=== PATIENT | male | born 1955 | race Caucasian/White ===

== ENCOUNTER 2018-09-30 04:06 | Inpatient (IN) ==
--- NOTE | 2018-09-24 15:35 | EKG Report ---
Test Performed on : 09/24/2018 3:26:24 PM Test Reason : PAT Blood Pressure : / mmHG Vent. Rate : 085 BPM Atrial Rate : 085 BPM P-R Int : 118 ms QRS Dur : 088 ms QT Int : 366 ms P-R-T Axes : 021 -01 020 degrees QTc Int : 435 ms Normal sinus rhythm. Minimal voltage criteria for LVH, may be normal variant Borderline ECG When compared with ECG of 05-APR-2018 06:19, QT has shortened Unconfirmed Result
[2018-09-24 15:44] LABS: URINE SOURCE VOIDED
[2018-09-24 15:53] LABS: BASO# 0.01 X1000 (0.0-0.2); BASO% 0.1 % (0.0-0.8); EOS# 0.03 X1000 (0.0-0.7); EOS% 0.4 % (0.0-10.0); HEMATOCRIT 37.6 % (42.0-52.0); HEMOGLOBIN 12.2 g/dL (14.0-18.0); LYMPH# 1.85 X1000 (1.2-3.4); LYMPH% 24.9 % (20.5-51.1); MCH 29.5 PG (27-31); MCHC 32.4 g/dL (33-37); MONO# 0.63 X1000 (0.11-0.59); MONO% 8.5 % (1.7-9.3); MPV 9.1 FL (7.4-10.4); NEUT# 4.92 X1000 (1.4-6.5); NEUT% 66.1 % (42.2-75.2); PLT 296 X1000 (130-400); RBC 4.13 XMIL (4.7-6.1); RDW 14.4 % (11.5-14.5); WBC 7.44 X1000 (4.8-10.8)
[2018-09-24 15:54] LABS: BILIRUBIN URINE NEGATIVE (NEGATIVE); BLOOD URINE NEGATIVE (NEGATIVE); COLOR YELLOW; GLUCOSE URINE NEGATIVE (NEGATIVE); KETONE URINE NEGATIVE (NEGATIVE); LEUKOCYTES URINE NEGATIVE (NEGATIVE); NITRITE URINE NEGATIVE (NEGATIVE); PROTEIN URINE NEGATIVE (NEGATIVE); TURBIDITY URINE CLEAR (CLEAR); UROBILINOGEN URINE NORMAL (NORMAL)
[2018-09-24 15:55] LABS: UR EPITHELIAL CELLS <10 /HPF (<10); URINE BACTERIA NEGATIVE /HPF; URINE RBC <10 /HPF (<10); URINE WBC <10 /HPF (<10)
[2018-09-24 16:08] LABS: AGAP 13; ALB/GLOB RATIO 1.2; ALBUMIN 4.3 g/dL (3.5-5.0); ALKALINE PHOSPHATASE 74 U/L (32-122); BUN 7 mg/dL (8-22); CALCIUM 9.3 mg/dL (8.8-10.2); CHLORIDE 99 mmol/L (98-107); COSMO 269; CREATININE 0.7 mg/dL (0.7-1.2); ESTIMATED GFR > 60; GLUCOSE 89 mg/dL (70-104); GOT 33 U/L (10-34); GPT 20 U/L (10-44); POTASSIUM 4.1 mmol/L (3.5-5.1); SODIUM 136 mmol/L (136-145); TCO2 24 mmol/L (25-35); TOTAL BILIRUBIN 0.43 mg/dL (0.20-1.00); TOTAL PROTEIN 7.8 g/dL (6.3-8.3)
--- NOTE | 2018-09-24 16:21 | Diag Imaging Result Doc PS360 ---
CHEST-2 VIEWS - 09/24/2018 INDICATION: PAT COMPARISON: 11/01/2015 FINDINGS: There is some stable apical pleural scarring bilaterally. No focal infiltrates, pneumothorax, or pleural effusion. Heart size and pulmonary vascular are normal. Stable surgical clips at the diaphragmatic hiatus. IMPRESSION: No acute disease or change from prior. Electronically signed by Chuck Jones 09/24/2018 4:18 PM
[2018-09-30] MEDS ORDERED: ENTEREG ONE (05:39)
[2018-09-30] MEDS ORDERED: MEFOXIN 1 GM/D5W 1 GM/50 ML IVPB ONE (05:39)
[2018-09-30] MEDS ORDERED: LR 1,000 ML ONE (05:40)
[2018-09-30] MEDS ORDERED: FLAGYL 1000 MG/NS 1,000 MG/200 ML IVPB IV ONE (06:00)
[2018-09-30] MEDS ORDERED: VERSED ONE (06:03)
[2018-09-30] MEDS ORDERED: DIPRIVAN 1% ONE (06:04)
[2018-09-30] MEDS ORDERED: FENTANYL ONE (06:04)
[2018-09-30] MEDS ORDERED: MARCAINE 0.5% PF ONE (06:39)
[2018-09-30] MEDS ORDERED: EXPAREL 1.3% ONE (06:39)
[2018-09-30] MEDS ORDERED: DILAUDID ONE (07:51)
[2018-09-30] MEDS ORDERED: NEO-SYNEPHRINE ONE (08:18)
[2018-09-30] MEDS ORDERED: ZOFRAN ONE (08:18)
[2018-09-30] MEDS ORDERED: DECADRON ONE (08:18)
[2018-09-30] MEDS ORDERED: ROBINUL ONE (08:18)
[2018-09-30] MEDS ORDERED: NEOSTIGMINE ONE (08:18)
[2018-09-30] MEDS ORDERED: QUELICIN (DOSE) ONE (08:18)
[2018-09-30] MEDS ORDERED: XYLOCAINE-MPF 2% ONE (08:18)
[2018-09-30 09:24] LABS: URINE SOURCE CATH
[2018-09-30] MEDS: DILAUDID ONE ×4 (09:24→09:51)
[2018-09-30 09:27] LABS: BILIRUBIN URINE NEGATIVE (NEGATIVE); BLOOD URINE NEGATIVE (NEGATIVE); COLOR YELLOW; GLUCOSE URINE NEGATIVE (NEGATIVE); KETONE URINE TRACE mg/dL (NEGATIVE); LEUKOCYTES URINE NEGATIVE (NEGATIVE); NITRITE URINE NEGATIVE (NEGATIVE); PROTEIN URINE NEGATIVE (NEGATIVE); SP GRAVITY URINE 1.001; TURBIDITY URINE CLEAR (CLEAR); UROBILINOGEN URINE NORMAL (NORMAL)
[2018-09-30 09:29] LABS: UR EPITHELIAL CELLS <10 /HPF (<10); URINE BACTERIA NEGATIVE /HPF; URINE RBC <10 /HPF (<10); URINE WBC <10 /HPF (<10)
[2018-09-30] MEDS ORDERED: DEMEROL ONE (09:38)
[2018-09-30] MEDS ORDERED: D5 1/2 NS 1,000 ML ONE (09:39)
[2018-09-30] MEDS ORDERED: APRESOLINE ONE (09:56)
[2018-09-30] MEDS ORDERED: NARCAN 0.4 MG in LR 1,000 ML IV PRN (10:00)
[2018-09-30] MEDS ORDERED: BENADRYL IV PRN (10:00)
[2018-09-30] MEDS ORDERED: DILAUDID-HP 30 MG in NS 27 ML IV PRN (10:00)
[2018-09-30] MEDS ORDERED: NARCAN IV PRN (10:00)
[2018-09-30] MEDS ORDERED: LR 1,000 ML IV SCH (10:00)
[2018-09-30] MEDS ORDERED: LABETALOL IV ONE (10:00)
[2018-09-30] MEDS ORDERED: ATARAX PO PRN (10:00)
--- NOTE | 2018-09-30 10:15 | OPERATIVE NOTE ---
PROCEDURE DATE: 09/30/2018 PREOPERATIVE DIAGNOSIS: Cancer of rectosigmoid region. PROCEDURE PERFORMED: 1. Cystoscopy with placement of ureteral catheters by Dr. Vigil that will covered in a separate operative note. 2. Exploratory laparotomy, adhesiolysis, low anterior resection with a 25 mm EEA anastomosis. DESCRIPTION OF PROCEDURE: Upon completion of the cystoscopy, the patient was prepped and draped in the appropriate manner. A midline infraumbilical to pubis incision was taken sharply down through skin and subcutaneous tissue. Fascia was incised. The peritoneum was grasped and entered. On palpation of the liver, there was no gross adenopathy or hepatic metastases. The patient had previous CT scan that did not show any liver metastasis. There was some scarring in the sigmoid. This was freed up. The tumor itself was beneath the peritoneal reflection. An area of mid descending, sigmoid was skeletonized and divided with a pursestring device. Then a small 25 mm anvil was placed and this was tied in. This was packed superiorly, along with the small intestine. The colon was mobilized distally with a LigaSure instrument. On reaching the superior hemorrhoidals, three Shraddha clamps were used to clamp the vessels, double tie of 0 silk suture, ligature of 2-0 silk was performed. The bladder flap was elevated anteriorly with pushing away of the bladder. Upon reaching an area 4-5 cm distal to the palpable tumor mass, the distal colon was stapled with a TA-45 stapler. The edges of the staple line were marked with 3-0 silk sutures. EEA was subsequently performed with a satisfactory anastomosis and satisfactory donuts being obtained. The Rozina test was negative. The EEA was subsequently removed. The wound was irrigated. There appeared to be no bleeding or leakage. After accounting for all laparotomy sponges, closure was subsequently initiated. The surgeon regowned and gloved. The peritoneum was closed in a single running layer of #1 Vicryl. The fascia was closed with interrupted #1 Maxon. Subcutaneous was closed with 3-0 Vicryl and the skin itself with stainless steel clips. Sterile dressings were applied. The ureteral catheters were removed intact. The patient was subsequently awakened and extubated in the operating room, and transferred to recovery. Estimated blood loss was about 150-200 mL. cc: Jose Mckeon MD
[2018-09-30] MEDS: D5 1/2 NS 1,000 ML IV SCH ×2 (11:00→23:40)
[2018-09-30] MEDS: ZOFRAN IV PRN (14:48)
[2018-09-30] MEDS: NICODERM PATCH TD SCH (15:25)
[2018-09-30] MEDS: MEFOXIN 1 GM/D5W 1 GM/50 ML IVPB IV SCH (15:26)
[2018-09-30] MEDS: FLAGYL 1000 MG/NS 1,000 MG/200 ML IVPB IV SCH (15:56)
--- NOTE | 2018-09-30 19:46 | OPERATIVE NOTE ---
PROCEDURE DATE: 09/30/2018 SURGEON: Dr. Tariq Vigil. PREOPERATIVE DIAGNOSIS: Colon cancer. POSTOPERATIVE DIAGNOSIS: Colon cancer. PROCEDURE PERFORMED: Cystoscopic exam with placement of bilateral ureteral stents. ANESTHESIA: General endotracheal. FINDINGS: Cystoscopic exam: Urethra - greater than 21 Sudanese, without stricture. Prostate - coapting lateral lobes, elevated bladder neck, length approximately 4 cm. Bladder - normal ureteral orifices bilaterally. No papillary lesions or trabeculations. No diverticula. Rectal exam reveals a prostate of about 40 g, smooth and symmetric. INDICATION FOR PROCEDURE: This 63-year-old male has a history of a pelvic mass secondary to colon cancer. He is going to undergo resection and ureteral stents are needed to facilitate dissection without ureteral injury. DESCRIPTION OF PROCEDURE: After informed consent was obtained from the patient and him receiving IV antibiotics, he was taken to the main OR, placed in supine position. General endotracheal anesthesia was achieved. He was then placed in a low lithotomy position and prepped and draped in the usual sterile fashion for cystoscopic exam. A 21-Sudanese cystoscope was passed to the patient's urethra, prostate and bladder with findings noted above. A 0.035 ZIPwire was passed through the cystoscope, engaged the left ureteral orifice, advanced up into the kidney. A 5- Sudanese open ended ureteral catheter was passed over the ZIPwire up to the 21 cm hilda. The wire was removed leaving the stent in place. The right side was accomplished similarly. The bladder was left distended. The resectoscope was removed leaving the stents in place. A 16-Sudanese Ruiz catheter was passed through the patient's urethra beside the stent into the bladder. 10 mL of sterile water were placed in the Ruiz's balloon, which was placed to gravity drain. The ureteral stents were placed into the Ruiz to gravity drain. The stents were secured to the Ruiz with an 0 silk tie. Estimated blood loss was 0. He was turned over to Dr. Mckeon who will be doing the colon surgery in good condition. cc: MD Jose Small MD
[2018-09-30] MEDS: PERIDEX MT SCH (21:00)
[2018-09-30] MEDS: MORPHINE PCA IV PRN (23:15)
[2018-10-01] MEDS: FLAGYL 1000 MG/NS 1,000 MG/200 ML IVPB IV SCH ×2 (02:00→09:17)
[2018-10-01] MEDS: MEFOXIN 1 GM/D5W 1 GM/50 ML IVPB IV SCH ×2 (03:54→11:57)
[2018-10-01 06:58] LABS: HEMATOCRIT 31.8 % (42.0-52.0); HEMOGLOBIN 10.6 g/dL (14.0-18.0); LYMPH# 0.53 X1000 (1.2-3.4); LYMPH% 6.6 % (20.5-51.1); MCH 29.4 PG (27-31); MCHC 33.3 g/dL (33-37); MCV 88.3 FL (81-99); MONO# 0.91 X1000 (0.11-0.59); MONO% 11.3 % (1.7-9.3); MPV 9.4 FL (7.4-10.4); NEUT# 6.58 X1000 (1.4-6.5); NEUT% 82.1 % (42.2-75.2); PLT 230 X1000 (130-400); RDW 14.2 % (11.5-14.5); WBC 8.02 X1000 (4.8-10.8)
--- NOTE | 2018-10-01 07:25 | Diag Imaging Result Doc PS360 ---
EXAM: CHEST-1 VIEW INDICATION: check NG tube placement TECHNIQUE: One view COMPARISON: 09/24/2018 FINDINGS: The newly placed NG tube tip projects a few centimeters below the diaphragm and is assumed to be just within the lumen of the stomach. Biapical pleural scarring is again noted. No new consolidation is identified. Cardiac silhouette is stable. IMPRESSION: Interval placement of NG tube as described. Electronically signed by Kirk Csatro 10/01/2018 7:23 AM
[2018-10-01 07:39] LABS: AGAP 9; BUN 4 mg/dL (8-22); CALCIUM 8.9 mg/dL (8.8-10.2); CHLORIDE 100 mmol/L (98-107); COSMO 275; CREATININE 0.6 mg/dL (0.7-1.2); ESTIMATED GFR > 60; GLUCOSE 181 mg/dL (70-104); POTASSIUM 3.6 mmol/L (3.5-5.1); SODIUM 137 mmol/L (136-145); TCO2 28 mmol/L (25-35)
[2018-10-01] MEDS: PRINZIDE 20/12.5MG PO SCH (09:18)
[2018-10-01] MEDS: ENTEREG PO SCH ×2 (09:18→20:18)
[2018-10-01] MEDS: NICODERM PATCH TD SCH (09:19)
[2018-10-01] MEDS: PERIDEX MT SCH ×2 (09:19→20:18)
[2018-10-01] MEDS: ZOFRAN IV PRN ×2 (12:01→18:51)
[2018-10-01] MEDS: D5 1/2 NS 1,000 ML IV SCH (14:41)
[2018-10-01] MEDS: MORPHINE PCA IV PRN (19:01)
[2018-10-02] MEDS: D5 1/2 NS 1,000 ML IV SCH ×4 (00:43→18:07)
[2018-10-02] MEDS: ZOFRAN IV PRN ×4 (05:33→22:47)
[2018-10-02 07:13] LABS: BASO# 0.05 X1000 (0.0-0.2); BASO% 0.6 % (0.0-0.8); EOS# 0.07 X1000 (0.0-0.7); EOS% 0.8 % (0.0-10.0); HEMOGLOBIN 10.9 g/dL (14.0-18.0); IMM GRAN# 0.02 X1000 (0.0-0.04); IMM GRAN% 0.2 % (0.0-0.5); LYMPH# 0.77 X1000 (1.2-3.4); MCH 31.1 PG (27-31); MCV 94.3 FL (81-99); MONO# 1.14 X1000 (0.11-0.59); MONO% 13.4 % (1.7-9.3); MPV 9.9 FL (7.4-10.4); NEUT# 6.46 X1000 (1.4-6.5); PLT 206 X1000 (130-400); RDW 14.8 % (11.5-14.5); WBC 8.51 X1000 (4.8-10.8)
[2018-10-02 07:29] LABS: AGAP 11; BUN 3 mg/dL (8-22); CHLORIDE 102 mmol/L (98-107); COSMO 277; CREATININE 0.5 mg/dL (0.7-1.2); ESTIMATED GFR > 60; GLUCOSE 159 mg/dL (70-104); POTASSIUM 3.3 mmol/L (3.5-5.1); SODIUM 139 mmol/L (136-145); TCO2 26 mmol/L (25-35)
[2018-10-02] MEDS: PERIDEX MT SCH ×2 (09:31→22:47)
[2018-10-02] MEDS: NICODERM PATCH TD SCH (09:31)
[2018-10-02] MEDS: ENTEREG PO SCH ×2 (09:31→22:47)
[2018-10-02] MEDS: PRINZIDE 20/12.5MG PO SCH (09:31)
[2018-10-02] MEDS: MORPHINE PCA IV PRN (18:31)
[2018-10-03] MEDS: D5 1/2 NS 1,000 ML IV SCH ×2 (04:57→19:43)
[2018-10-03] MEDS: ZOFRAN IV PRN ×2 (04:57→09:40)
[2018-10-03] MEDS: PERIDEX MT SCH ×2 (09:40→23:04)
[2018-10-03] MEDS: PRINZIDE 20/12.5MG PO SCH (09:40)
[2018-10-03] MEDS: ENTEREG PO SCH ×2 (09:41→23:04)
[2018-10-03] MEDS: NICODERM PATCH TD SCH (09:41)
--- NOTE | 2018-10-03 10:04 | Diag Imaging Result Doc PS360 ---
EXAM: CHEST-1 VIEW HISTORY: post op TECHNIQUE: Chest single view COMPARISON: 10/01/2018 FINDINGS: The lungs are well expanded. The heart is not enlarged. The vessels are not distended. There are no infiltrates. No effusion identified. IMPRESSION: Negative exam. Electronically signed by Nicola Perez 10/03/2018 10:02 AM
[2018-10-03] MEDS: MORPHINE PCA IV PRN (11:56)
[2018-10-03] MEDS ORDERED: ZOFRAN IV PRN (12:47)
[2018-10-03] MEDS ORDERED: D/C PCA XX ONE (12:49)
[2018-10-03] MEDS: NORCO-10 PO PRN (23:08)
[2018-10-04] MEDS: NORCO-10 PO PRN ×5 (03:24→21:31)
[2018-10-04] MEDS: D5 1/2 NS 1,000 ML IV SCH ×3 (03:44→23:48)
[2018-10-04 07:26] LABS: BASO# 0.01 X1000 (0.0-0.2); BASO% 0.2 % (0.0-0.8); EOS# 0.23 X1000 (0.0-0.7); EOS% 3.8 % (0.0-10.0); HEMATOCRIT 30.6 % (42.0-52.0); HEMOGLOBIN 10.3 g/dL (14.0-18.0); IMM GRAN# 0.02 X1000 (0.0-0.04); IMM GRAN% 0.3 % (0.0-0.5); LYMPH# 1.22 X1000 (1.2-3.4); MCH 29.6 PG (27-31); MCHC 33.7 g/dL (33-37); MCV 87.9 FL (81-99); MONO# 0.77 X1000 (0.11-0.59); MONO% 12.6 % (1.7-9.3); MPV 9.4 FL (7.4-10.4); NEUT# 3.85 X1000 (1.4-6.5); NEUT% 63.1 % (42.2-75.2); PLT 245 X1000 (130-400); RBC 3.48 XMIL (4.7-6.1); RDW 12.9 % (11.5-14.5)
[2018-10-04] MEDS: NICODERM PATCH TD SCH ×2 (07:52→17:11)
[2018-10-04] MEDS: PRINZIDE 20/12.5MG PO SCH ×2 (07:52→17:11)
[2018-10-04] MEDS: ENTEREG PO SCH ×3 (07:52→21:31)
[2018-10-04] MEDS: THERA M PLUS PO SCH ×2 (07:53→12:27)
[2018-10-04] MEDS: ZOFRAN IV PRN ×4 (07:53→21:29)
[2018-10-04] MEDS: PERIDEX MT SCH ×3 (07:53→21:31)
[2018-10-04 08:05] LABS: AGAP 11; ALB/GLOB RATIO 1.1; ALBUMIN 3.1 g/dL (3.5-5.0); ALKALINE PHOSPHATASE 54 U/L (32-122); BUN 5 mg/dL (8-22); CHLORIDE 95 mmol/L (98-107); COSMO 267; CREATININE 0.6 mg/dL (0.7-1.2); ESTIMATED GFR > 60; GLUCOSE 125 mg/dL (70-104); GOT 27 U/L (10-34); GPT 16 U/L (10-44); SODIUM 134 mmol/L (136-145); TCO2 28 mmol/L (25-35); TOTAL BILIRUBIN 0.73 mg/dL (0.20-1.00); TOTAL PROTEIN 5.9 g/dL (6.3-8.3)
[2018-10-04] MEDS: KLOR-CON PO SCH ×2 (12:27→21:31)
[2018-10-05] MEDS: NORCO-10 PO PRN ×2 (04:15→09:13)
[2018-10-05] MEDS: ZOFRAN IV PRN ×2 (04:15→09:26)
[2018-10-05] MEDS: D5 1/2 NS 1,000 ML IV SCH (06:35)
[2018-10-05 07:45] VITALS: BP 155/87
[2018-10-05] MEDS: KLOR-CON PO SCH (09:13)
[2018-10-05] MEDS: ENTEREG PO SCH (09:13)
[2018-10-05] MEDS: PERIDEX MT SCH (09:14)
[2018-10-05] MEDS: PRINZIDE 20/12.5MG PO SCH (09:14)
[2018-10-05] MEDS: THERA M PLUS PO SCH (09:14)
[2018-10-05] MEDS: NICODERM PATCH TD SCH (09:15)
--- NOTE | 2018-10-22 11:11 | DISCHARGE SUMMARY ---
ADMISSION DATE: 09/30/2018 DISCHARGE DATE: 10/05/2018 DIAGNOSIS: Large villous adenoma of the rectosigmoid. PROCEDURES PERFORMED: 1. Low anterior resection. 2. Cystoscopy with placement of ureteral catheters. HISTORY: The patient is a 63-year-old white male referred for evaluation of a large villous adenoma in the rectosigmoid area. Biopsies revealed pure villous adenoma, but it is fairly large so there is likelihood that there is a malignancy there. The patient underwent an outpatient chemical and bowel prep, and was admitted on the day of surgery. On the day of surgery, a low anterior resection was performed after cystoscopy with placement of ureteral catheters. The permanent pathology revealed pure villous adenoma only. Hospitalization was largely uneventful. The dietary advancements were well tolerated. He was having spontaneous bowel movements prior to discharge. The wound appears to be healing nicely. He subsequently was allowed home on 10/05 on multivitamins, Colace, [place] and Zofran. He will be seen in the office in 1 week's time. There are no plans for chemotherapy or radiation at this time. cc: Jose Mckeon MD
== END 2018-10-05 10:57 | disposition home or self-care (01) | DRG 331 ==
LOC: SURHOLD 04:06 → 4N 08:14
PROVIDERS: ADMIT Surgery; ATTEND Surgery
CPT/HCPCS: 71010; 71020; 71045; 71046; 80048; 80053; 81001; 85025; 86850; 86900; 86901; 88304; 88309; 93005; 93010; 94761; 94799; A9270; C9290; J0330; J0360; J0694; J1100; J1170; J2175; J2250; J2270; J2275; J2370; J2405; J3010; J7120; Q9974; S0020; S0030

== ENCOUNTER 2019-01-09 05:53 | Day surgery (SDC) ==
--- NOTE | 2019-01-07 13:51 | EKG Report ---
Test Performed on : 01/07/2019 1:27:35 PM Test Reason : PAT Blood Pressure : / mmHG Vent. Rate : 068 BPM Atrial Rate : 068 BPM P-R Int : 150 ms QRS Dur : 086 ms QT Int : 390 ms P-R-T Axes : 054 035 057 degrees QTc Int : 414 ms Normal sinus rhythm. Normal ECG When compared with ECG of 24-SEP-2018 15:26, No significant change was found Confirmed by Nitin Woodard MD ([id number]) on 01/07/2019 5:02:35 PM
[2019-01-07 13:59] LABS: URINE SOURCE VOIDED
[2019-01-07 14:02] LABS: BILIRUBIN URINE NEGATIVE (NEGATIVE); BLOOD URINE NEGATIVE (NEGATIVE); COLOR YELLOW; GLUCOSE URINE NEGATIVE (NEGATIVE); KETONE URINE NEGATIVE (NEGATIVE); LEUKOCYTES URINE NEGATIVE (NEGATIVE); NITRITE URINE NEGATIVE (NEGATIVE); PH URINE 5.5; PROTEIN URINE NEGATIVE (NEGATIVE); SP GRAVITY URINE 1.008; TURBIDITY URINE CLEAR (CLEAR); UR EPITHELIAL CELLS <10 /HPF (<10); URINE BACTERIA NEGATIVE /HPF; URINE RBC <10 /HPF (<10); URINE WBC <10 /HPF (<10); UROBILINOGEN URINE NORMAL (NORMAL)
--- NOTE | 2019-01-07 14:14 | Diag Imaging Result Doc PS360 ---
EXAM: CHEST-2 VIEWS HISTORY: PAT TECHNIQUE: Chest two views COMPARISON: 07/01/2016 FINDINGS: The lungs are hyperexpanded. The heart is not enlarged. The vessels are small. There are no infiltrates. No pleural effusions. Prominent atherosclerosis. IMPRESSION: Emphysema Electronically signed by Nicola Perez 01/07/2019 2:11 PM
[2019-01-07 14:27] LABS: AGAP 12; ALB/GLOB RATIO 1.3; ALBUMIN 4.1 g/dL (3.5-5.0); ALKALINE PHOSPHATASE 88 U/L (32-122); BUN 9 mg/dL (8-22); CALCIUM 9.3 mg/dL (8.8-10.2); CHLORIDE 96 mmol/L (98-107); COSMO 270; CREATININE 0.6 mg/dL (0.7-1.2); ESTIMATED GFR > 60; GLUCOSE 94 mg/dL (70-104); GOT 42 U/L (10-34); GPT 28 U/L (10-44); SODIUM 136 mmol/L (136-145); TCO2 28 mmol/L (25-35); TOTAL BILIRUBIN 0.28 mg/dL (0.20-1.00); TOTAL PROTEIN 7.3 g/dL (6.3-8.3)
[2019-01-07 14:58] LABS: BASO# 0.03 X1000 (0.0-0.2); BASO% 0.4 % (0.0-0.8); EOS# 0.04 X1000 (0.0-0.7); EOS% 0.6 % (0.0-10.0); HEMATOCRIT 35.8 % (42.0-52.0); HEMOGLOBIN 12.1 g/dL (14.0-18.0); IMM GRAN# 0.02 X1000 (0.0-0.04); IMM GRAN% 0.3 % (0.0-0.5); LYMPH# 1.76 X1000 (1.2-3.4); MCH 29.7 PG (27-31); MCHC 33.8 g/dL (33-37); MCV 87.7 FL (81-99); MONO# 0.69 X1000 (0.11-0.59); MONO% 10.2 % (1.7-9.3); MPV 9.3 FL (7.4-10.4); NEUT# 4.24 X1000 (1.4-6.5); NEUT% 62.5 % (42.2-75.2); PLT 272 X1000 (130-400); RBC 4.08 XMIL (4.7-6.1); RDW 14.6 % (11.5-14.5); WBC 6.78 X1000 (4.8-10.8)
[2019-01-09] MEDS ORDERED: REGLAN ONE (06:18)
[2019-01-09] MEDS ORDERED: PEPCID ONE (06:18)
[2019-01-09] MEDS ORDERED: LR 1,000 ML ONE (06:18)
[2019-01-09] MEDS ORDERED: KEFZOL 1 GM/D5W 1 GM/50 ML IVPB ONE (06:18)
[2019-01-09] MEDS ORDERED: DIPRIVAN 1% ONE (06:35)
[2019-01-09] MEDS ORDERED: QUELICIN (DOSE) ONE (06:37)
[2019-01-09] MEDS ORDERED: NORCURON ONE (06:38)
[2019-01-09] MEDS ORDERED: STERILE WATER INJ. ONE (06:38)
[2019-01-09] MEDS ORDERED: FENTANYL ONE (06:39)
[2019-01-09] MEDS ORDERED: MARCAINE 0.25% PF/EPI 1:200,000 ONE (07:32)
[2019-01-09] MEDS ORDERED: LOPRESSOR ONE (08:26)
[2019-01-09] MEDS ORDERED: APRESOLINE ONE (08:26)
[2019-01-09] MEDS ORDERED: DECADRON ONE (08:27)
[2019-01-09] MEDS ORDERED: ZOFRAN ONE (08:27)
[2019-01-09] MEDS: DILAUDID ONE ×4 (09:12→09:37)
[2019-01-09] MEDS ORDERED: D5 1/2 NS 1,000 ML ONE (09:14)
[2019-01-09] MEDS ORDERED: DILAUDID ONE (09:22)
[2019-01-09] MEDS ORDERED: NORCO-10 ONE (09:40)
[2019-01-09] MEDS ORDERED: PHENERGAN ONE (09:47)
[2019-01-09] MEDS ORDERED: MORPHINE IV PRN (10:27)
[2019-01-09] MEDS: NORCO-10 PO PRN ×3 (12:54→21:25)
[2019-01-09] MEDS: ZOFRAN IV PRN ×3 (13:08→21:24)
[2019-01-09] MEDS: KEFZOL 1 GM/D5W 1 GM/50 ML IVPB IV SCH ×2 (15:43→23:15)
[2019-01-09] MEDS: D5 1/2 NS 1,000 ML IV SCH ×2 (17:21→23:15)
--- NOTE | 2019-01-09 20:13 | OPERATIVE NOTE ---
PROCEDURE DATE: 01/09/2019 PREOPERATIVE DIAGNOSIS: Incisional hernia from recent low anterior resection for large villous adenoma, a heavy smoking history with severe chronic obstructive pulmonary disease. He has also had perforated ulcers in the past. PROCEDURE: Open incisional hernia repair. DESCRIPTION OF PROCEDURE: The patient was brought to the operating room. After satisfactory induction of IV and endotracheal anesthesia, athrombic TEDs were placed as well as Ruiz catheter. His abdomen was prepped and draped in the appropriate manner. The old infraumbilical midline incision revealed a hernia defect extending from just beneath the top of the incision down to the pelvis. The old incision was opened with extensive adhesiolysis from bowel. There was no evidence of visceral or bladder injury during the adhesiolysis. The fascia was isolated. The distended hernia sac area was resected away with electrocautery. The hernia itself was closed with interrupted 0 Prolene. Subcutaneous skin edges were then dissected back, and a piece of mesh 8 x 12 cm was tacked down with 0 Surgilon. This completely covered the defect. On completion, the repair appeared to be satisfactory. The subcutaneous was closed with interrupted 3-0 Vicryl and the skin itself with stainless steel clips. Sterile dressings and abdominal binder were placed. He was awakened and extubated in the operating room. Ruiz catheter was removed. Estimated blood loss was about 20 mL. cc: Jose Mckeon MD
[2019-01-09] MEDS: FLOMAX PO SCH (20:27)
[2019-01-09] MEDS: PERIDEX MT SCH (20:35)
[2019-01-10] MEDS: D5 1/2 NS 1,000 ML IV SCH (00:43)
[2019-01-10] MEDS: NORCO-10 PO PRN ×2 (01:24→05:44)
[2019-01-10] MEDS: ZOFRAN IV PRN ×2 (01:24→05:43)
[2019-01-10 07:34] VITALS: BP 159/86
[2019-01-10] MEDS: KEFZOL 1 GM/D5W 1 GM/50 ML IVPB IV SCH (08:24)
[2019-01-10] MEDS: PERIDEX MT SCH (08:24)
[2019-01-10] MEDS: FLOMAX PO SCH (08:25)
== END 2019-01-10 09:38 | disposition home or self-care (01) ==
LOC: PAT 05:53 → SURHOLD 05:53 → 4N 10:12 → PAT 01-10 09:38
PROVIDERS: ATTEND Surgery
CPT/HCPCS: 71020; 71046; 80053; 81001; 85025; 88302; 93005; 93010; 94761; 94799; A9270; J0330; J0360; J0690; J1100; J1170; J2405; J2550; J3010; J7120